=== PATIENT | female | born 1955 | race Two or more races ===

== ENCOUNTER 2018-06-04 08:35 | Emergency (ER) | payer OTHER ==
[~2018-06-04] VITALS: Ht 167.6 cm; Wt 72.6 kg
[2018-06-04 08:43] VITALS: BP 167/108
[2018-06-04] MEDS ORDERED: ACETAMINOPHEN 325 MG TAB PO ONE (09:00)
== END 2018-06-04 09:39 | disposition home or self-care (01) ==
LOC: ER 08:39
DX: S16.1XXA Strain of muscle, fascia and tendon at neck level, initial encounter (principal); S29.012A Strain of muscle and tendon of back wall of thorax, initial encounter; I10 Essential (primary) hypertension; Z88.2 Allergy status to sulfonamides; V43.52XA Car driver injured in collision with other type car in traffic accident, initial encounter; Y93.89 Activity, other specified; Y99.8 Other external cause status; Y92.410 Unspecified street and highway as the place of occurrence of the external cause
CPT/HCPCS: 72040; 72070